=== PATIENT | male | born 1985 | race Caucasian/White ===

== ENCOUNTER 2020-11-12 19:05 | Emergency (ER) | payer BC | END 2020-11-12 20:54 | disposition home or self-care (01) | LOC: ER1 19:05 | DX: S60.417A Abrasion of left little finger, initial encounter (principal); W31.2XXA Contact with powered woodworking and forming machines, initial encounter; Y92.009 Unspecified place in unspecified non-institutional (private) residence as the place of occurrence of the external cause | CPT/HCPCS: 73140; 90471; 90715; 99283 ==